=== PATIENT | female | born 1995 | race Caucasian/White ===

== ENCOUNTER 2018-03-12 10:44 | Outpatient (CLI) | payer OTHER | END 2018-03-12 10:45 | disposition home or self-care (01) | LOC: SONOGRAMA 10:44 | DX: E04.2 Nontoxic multinodular goiter (principal) ==

== ENCOUNTER 2018-04-28 11:47 | Outpatient (CLI) | payer OTHER | END 2018-04-28 11:59 | disposition home or self-care (01) | LOC: SONOGRAMA 11:47 | DX: E04.1 Nontoxic single thyroid nodule (principal) ==